=== PATIENT | male | born 1970 | race Two or more races ===

== ENCOUNTER 2025-09-19 20:39 | Emergency (ER) | payer OTHER ==
[~2025-09-19] VITALS: Ht 193 cm; Wt 136.9 kg
--- NOTE | 2025-09-19 22:27 | ED.PDOC ---
History of Present Illness HPI Comments 55-year-old, obese male presents from urgent care for with chief complaint of right shoulder pain status post mechanical fall injury. Significant history for hypertension. Patient reports on falling and injuring his right shoulder after losing his balance, while helping his neighbor outside in the dark, on 09/17/2025. No additional trauma or loss of consciousness endorsed. He was referred from urgent care facility after being found with a right shoulder fracture via X-ray imaging, today. Pain is provoked with movement and is a 10/10 in severity at its worst. He denies any further acute symptoms. Chief Complaint: Upper Extremity Time Seen by MD: 22:10 Reviewed Notes: Nurses Notes, Medications, Allergies Information Source: Patient Mode of Arrival: Ambulatory Severity: Moderate Timing: Days Duration: Since onset Prehospital treatment: Other (Sling) Past Medical History PAST MEDICAL HISTORY: HTN Surgical History: Denies all surgeries Family History Family History: Reviewed,noncontributory to illness, No family hx of Cancer, No family hx of DM, No family hx of HTN, No family hx ofKidney mckenzie, No family hx of Liver mckenzie, No family hx of Lung mckenzie, No family hx of Stroke, Family hx of heart mckenzie Social History Smoker: Non-Smoker Alcohol: Occasionally Drugs: Denies Drug Use Lives In: Home Constitutional: denies: chills, diaphoresis, fatigue, fever, malaise, sweats, weakness, others EENTM: denies: blurred vision, double vision, ear bleeding, ear discharge, ear drainage, ear pain, ear ringing, eye pain, eye redness, hearing loss, mouth pain, mouth swelling, nasal discharge, nose bleeding, nose congestion, nose pain, photophobia, tearing, throat pain, throat swelling, voice changes, others Respiratory: denies: cough, hemoptysis, orthopnea, SOB at rest, shortness of breath, SOB with excertion, stridor, wheezing, others Cardiovascular: denies: chest pain, dizzy spells, diaphoresis, Dyspnea on exertion, edema, irregular heart beat, left arm pain, lightheadedness, palpitations, PND, syncope, others Gastrointestinal: denies: abdomen distended, abdominal pain, blood streaked bowels, constipated, diarrhea, dysphagia, difficulty swallowing, hematemesis, melena, nausea, poor appetite, poor fluid intake, rectal bleeding, rectal pain, vomiting, others Genitourinary: denies: burning, dysuria, flank pain, frequency, hematuria, incontinence, penile discharge, penile sore, pain, testicle pain, testicle swelling, urgency, others Neurological: denies: dizziness, fainting, headache, left sided numbness, left sided weakness, numbness, paresthesia, pre-existing deficit, right sided numbness, right sided weakness, seizure, speech problems, tingling, tremors, weakness, others Musculoskeletal: reports: joint pain (Right shoulder); denies: back pain, gout, joint swelling, muscle pain, muscle stiffness, neck pain, others Integumetry: denies: bruises, change in color, change in hair/nails, dryness, laceration, lesions, lumps, rash, wounds, others Allergic/Immunocompromised: denies: Difficulty Healing, Frequent Infections, Hives, Itching, others Hematologic/Lymphatic: denies: anemia, blood clots, easy bleeding, easy bruising, swollen glands, others Endocrine: denies: excessive hunger, excessive sweating, excessive thirst, excessive urination, flushing, intolerance to cold, intolerance to heat, unexplained weight gain, unexplained weight loss, others Psychiatric: denies: anxiety, bipolar disorder, depression, hopeless, panic disorder, schizophrenia, sleepless, suicidal, others All Other Systems: Reviewed and Negative Physical Exam General Appearance: Moderate Distress HEENT: Normal ENT Inspection, Pharynx Normal, TMs Normal Neck: Full Range of Motion, Non-Tender, Normal, Normal Inspection Respiratory: Chest Non-Tender, Lungs Clear, No Accessory Muscle Use, No Respiratory Distress, Normal Breath Sounds Cardiovascular: No Edema, No JVD, No Murmur, No Gallop, Normal Peripheral Pulses, Regular Rate/Rhythm Breast Exam: Deferred Gastrointestinal: No Organomegaly, Non Tender, No Pulsatile Mass, Normal Bowel Sounds, Soft Genitalia: Deferred Pelvic: Deferred Rectal: Deferred Extremities: No calf tenderness, Normal capillary refill, No pedal edema, Other (Right arm proximal tenderness with decreased range of motion) Musculoskeletal : Apperance: Normal Neurologic: Alert, slip dumper II-XII nml as Tested, No Motor Deficits, Normal Affect, Normal Mood, No Sensory Deficits Cerebellar Function: Normal Reflexes: Normal Skin: Dry, Normal Color, Warm Lymphatic: No Adenopathy Was a procedure done? Was a procedure done?: No Differential Dx Considerations may include: Fractures, contusions, sprain, strain, neurovascular injury, among others X-Ray, Labs, Meds, VS Vital Signs Date Time Temp Pulse Resp B/P (MAP) Pulse Ox O2 Delivery O2 Flow Rate FiO2 09/19/25 20:52 98.0 114 22 123/77 100 98.0 An x-ray of the right shoulder shows: FINDINGS/IMPRESSION: : Comminuted minimally displaced fracture of the humeral head and neck. Lucas ohumeral joint is congruent. AC joint is congruent. The patient is going to wear his shoulder immobilizer We are referring the patient to who is the orthopedic surgeon on-call Images Reviewed?: Images reviewed and evaluated by me Time of 1ST Reevaluation: 22:50 Reevaluation 1ST: Unchanged Patient Education/Counseling: Diagnosis, Treatment, Prognosis Family Education/Counseling: No Family Present SEPSIS Sepsis Screen Date sepsis recognized/suspect: Sep 19, 2025 Time Sepsis recognized/suspect: 2051 Recent Procedure: No On Antibiotic Therapy: No Respiratory Rate >20: No Heart Rate >90: No Temp<36 C (96.8 F) or >38.3 C: No SBP <90 or MAP <65 mmHG: No New Acute Mental Status Change: No Is the patient on CPAP, BIPAP,: No Physician Orders R Shoulder 2+ View Xray (09/19/25 22:14) Vital Signs Date Time Temp Pulse Resp B/P (MAP) Pulse Ox O2 Delivery O2 Flow Rate FiO2 09/19/25 20:52 98.0 114 22 123/77 100 98.0 Departure 1 Departure Time of Disposition: 23:41 Impression: Primary Impression: Humeral surgical neck fracture Qualified Codes: S42.214A - Unspecified nondisplaced fracture of surgical neck of right humerus, initial encounter for closed fracture Disposition: 01 HOME / SELF CARE / HOMELESS Condition: Fair Discharged With: Self Critical Care Note Critical Care Time?: No Stability Stability form required: No Heart Score Heart Score: Heart Score Response (Comments) Value History N/A 0 EKG N/A 0 Age N/A 0 Risk Factors N/A 0 Troponin N/A 0 Total 0 I personally scribed for SHELLI CAVANAUGH MD ([email or web address]) on 09/19/25 at 22:27. Electronically submitted by Octavio Bell ([email or web address]). SHELLI CAVANAUGH MD Sep 19, 2025 22:27
--- NOTE | 2025-09-19 23:39 | DVH ---
CLINICAL INDICATION: fall, pain TECHNIQUE: XYXY R SHOULDER 2+ VIEW XRAY Comparison: None FINDINGS/IMPRESSION: : Comminuted minimally displaced fracture of the humeral head and neck. Glenohumeral joint is congruent. AC joint is congruent.
[2025-09-19] MEDS: HYDROcodone-ACET 10/325MG TAB PO ONE (23:56)
[2025-09-20] VITALS: BP 127/75; PULSE 101; RESP 18; TEMP 98.3; O2SAT 95
== END 2025-09-20 00:05 | disposition home or self-care (01) ==
LOC: ER 20:39
DX: S42.211A Unspecified displaced fracture of surgical neck of right humerus, initial encounter for closed fracture (principal); I10 Essential (primary) hypertension; E66.9 Obesity, unspecified; Z68.36 Body mass index [BMI] 36.0-36.9, adult; W01.0XXA Fall on same level from slipping, tripping and stumbling without subsequent striking against object, initial encounter; Y93.89 Activity, other specified; Y92.89 Other specified places as the place of occurrence of the external cause; Y99.8 Other external cause status
CPT/HCPCS: 73030